=== PATIENT | male | born 1955 | race American Indian/Alaskan Native ===

== ENCOUNTER 2018-12-28 09:42 | Inpatient (IN) | payer OTHER ==
[2018-12-28] MEDS ORDERED: PROVENTIL IH ONE ×2 (10:03→12:35)
[2018-12-28] MEDS ORDERED: ATROVENT IH ONE (10:03)
[2018-12-28] MEDS ORDERED: SOLU-Medrol IV ONE (10:03)
--- NOTE | 2018-12-28 10:08 | Emergency Department Report ---
HPI - General Chief Complaint: Dyspnea/Respdistress Time Seen by Provider: 12/28/18 09:59 - HPI HPI: 63-year-old -[place] male presents to the emergency department from home with a complaint of a 2-3 day history of shortness of breath, mixed dry and productive cough, chest congestion and subjective fever. The patient has a history of hypertension and paroxysmal atrial fibrillation on Coumadin for anticoagulation. The patient thought that his symptoms may be secondary to some sinus issues and has been taking [id number] sinus medication for the past few days without much relief. No recent travel or sick contacts at home. His primary care physician is a Dr. Rodriguez. ED Past Medical Hx - Past Medical History Hx Hypertension: Yes Additional medical history: Afib - Surgical History Past Surgical History?: No - Social History Smoking Status: Never Smoker Substance Use Type: None ED Review of Systems ROS: Stated complaint: SOB Other details as noted in HPI Comment: All other systems reviewed and negative Constitutional: fever (subjective). denies: weakness Eyes: denies: eye pain, vision change ENT: denies: ear pain, throat pain Respiratory: cough, shortness of breath, wheezing Cardiovascular: denies: chest pain, palpitations Gastrointestinal: denies: abdominal pain, vomiting Genitourinary: denies: dysuria, discharge Musculoskeletal: denies: back pain, arthralgia Skin: denies: rash, lesions Neurological: denies: headache, weakness Physical Exam - Physical Exam Vital Signs: Vital Signs 12/28/18 09:44 Temperature 98.2 F Pulse Rate 106 H Respiratory 20 Rate Blood Pressure 133/100 O2 Sat by Pulse 94 Oximetry Physical Exam: GENERAL: The patient is well-developed well-nourished. HENT: Normocephalic. Atraumatic. Patient has moist mucous membranes. EYES: Extraocular motions are intact. Pupils equal reactive to light bilaterally. NECK: Supple. Trachea is midline. CHEST/LUNGS: Moderate wheezing throughout the chest. There is some tachypnea but no accessory muscle use. No conversational dyspnea. There is no respiratory distress noted. HEART/CARDIOVASCULAR: Regular. There is mild tachycardia. There is no murmur. ABDOMEN: Abdomen is soft, nontender. Patient has normal bowel sounds. Obese habitus. SKIN: Skin is warm and dry. NEURO: The patient is awake, alert, and oriented. The patient is cooperative. The patient has no focal neurologic deficits. The patient has normal speech. MUSCULOSKELETAL: There is no tenderness or deformity. There is no limitation r alcon of motion. There is no evidence of acute injury. ED Course Vital Signs 12/28/18 09:44 Temperature 98.2 F Pulse Rate 106 H Respiratory 20 Rate Blood Pressure 133/100 O2 Sat by Pulse 94 Oximetry - ABG Interpretation Ph: 7.368 PCO2: 41 PO2: 61 Bicarbonate: 23 Interpretation: other (hypoxia) ED Medical Decision Making - Lab Data Result diagrams: 12/28/18 10:16 12/28/18 10:44 - EKG Data -: EKG Interpreted by Me - EKG Data When compared to previous EKG there are: previous EKG unavailable Interpretation: other (atrial flutter, rate of 96 bpm) - Radiology Data Radiology results: image reviewed interpreted by me: Chest x-ray shows some mild cardiomegaly and pulmonary vascular congestion. No obvious pneumonia. No pneumothorax. - Medical Decision Making Patient presents with some shortness of breath, wheezing, coughing. On examination his bronchospasm is audible even without auscultation. He does have some tachypnea but does not appear to be in any respiratory distress. A chest x-ray was done that showed some cardiomegaly and pulmonary vascular congestion, but otherwise there is no signs of any pneumonia, pleural effusions, focal consolidation or pneumothorax. The patient's labs have been mostly u nremarkable. His INR is not therapeutic for his Coumadin treatment so a d-dimer sent but it came back as negative. The patient was given some steroids and to different presenting treatments. At first, the patient appeared to be responding to the nebulized treatments. However we attempted to ambulate the patient and he was only able to go a short distance before he had audible wheezing, tachypnea and hypoxia. With ambulation, his pulse ox went down into the 80s. Afterwards, even while at rest, the patient had tachycardia and some hypoxia in the low 90s. For all these reasons, the patient appears to require admission for serial breathing treatments and steroids, further evaluation and t reatment, and the patient was except for admission by the hospitalist, Dr. Fine. - Differential Diagnosis Asthma, pneumonia, COPD, PE, Bronchitis Critical Care Time: No Critical care attestation.: If time is entered above; I have spent that time in minutes in the direct care of this critically ill patient, excluding procedure time. ED Disposition Clinical Impression: Bronchospasm, Hypoxemia, Exertional dyspnea Hypertension Qualifiers: Hypertension type: essential hypertension Qualified Code(s): I10 - Essential (primary) hypertension Disposition: OP ADMIT IP TO THIS HOSP Is pt being admited?: Yes Condition: Fair Time of Disposition: 15:34
[2018-12-28 11:20] LABS: Hematocrit 42.4 % (35.5-45.6); Hemoglobin 14.6 gm/dl (11.8-15.2); Mean Corpuscular HGB Conc 34 % (32-34); Mean Corpuscular Volume 90 fl (84-94); Platelet Count 175 K/mm3 (140-440); Red Blood Count 4.74 M/mm3 (3.65-5.03); Red Cell Distribution Width 13.9 % (13.2-15.2)
[2018-12-28 11:22] LABS: Alanine Aminotransferase 18 units/L (7-56); BUN/Creatinine Ratio 9; Blood Urea Nitrogen 10 mg/dL (9-20); Calcium 8.9 mg/dL (8.4-10.2); Hemolysis Index 8
[2018-12-28 11:32] LABS: INR 1.46 (0.87-1.13)
[2018-12-28 11:33] LABS: Partial Thromboplastin Time 41.3 Sec. (24.2-36.6)
--- NOTE | 2018-12-28 12:15 | XRay Report ---
PROCEDURE: XR CHEST 1V AP TECHNIQUE: Frontal chest radiograph. HISTORY: Dyspnea COMPARISONS: None FINDINGS: The left lateral costophrenic angle was not completely included on the study. There is likely mild ca rdiomegaly. Central pulmonary vascular congestion is seen. There is mild prominence of the right para tracheal contours. Note that the patient is rotated. No consolidation. No pleural effusion. No pneumothorax. No acute osseous abnormality. IMPRESSION: Mild cardiomegaly with central pulmonary vascular congestion. Nonspecific prominence of the right paratracheal region may represent the sternum related to patient rotation. Recommend further evaluation with dedicated PA and lateral chest radiograph when feasible. This document is electronically signed by Mali Rosenthal., Dec 28 2018 12:14:04 PM ET
[2018-12-28 12:38] LABS: Bilirubin,Urine NEG (Negative); Blood,Urine SM (Negative); Color,Urine Yellow (Yellow); Mucus,Urine 1+ /HPF; Urobilinogen,Urine < 2.0 mg/dL (<2.0)
[2018-12-28] MEDS ORDERED: ZOFRAN IV PRN (14:16)
[2018-12-28] MEDS ORDERED: SODIUM CHLORIDE FLUSH SYRINGE 10 ML IV PRN (14:16)
[2018-12-28 14:22] LABS: Band Neutrophils # (Manual) 0.1 K/mm3; Basophils % (Manual) 0 % (0.0-1.8); Giant Platelets Few; Platelet Estimate Consistent w Auto; RBC Morphology Normal; Total Cells Counted 100
--- NOTE | 2018-12-28 20:55 | History and Physical Report ---
History of Present Illness Date of admission: 12/28/18 14:16 Chief complaint: I cant breathe History of present illness: 63 YO Male with MO, Atrial Fib currently prescribed therapeutic anticoagulation with Coumadin, Medication Noncompliance, HTN presents to ED for evaluation. Pt states that he has experienced shortness of breath over the past 3 days with persistently worsening symptoms over the same time frame. Pt also reports increased productive cough with yellow sputum and well as lack of improvement in symptoms with nebulizer therapy. Pt acknowledges decreased exercise tolerance, dypsnea at rest, dypsnea with exertion, and well as palpitations in his chest. Pt transported to [facility] via private vehicle. Pt seen and evaluated in ED and found to have Atrial Fib with RVR, with subtherapeutic INR, COPD Exacerbation complicated by Acute Respiratory Failure, as well as symptoms consistent with CHF decompensation. Pt treated with supplemental oxygen, nebulizer therapy and diuresis with improvement in symptoms. Pt admitted to telemetry. Cardiology consulted in ED. Pt denies fever, chills, CP, NVD, Trauma, BRBPR, Skin rash, unilateral leg swelling, calf pain, hemoptysis, or recent ill contacts. No prior admission for review. All listed medication reconciled at time of admission. Past History Past Medical History: atrial fib, hypertension, other (MO,Obesity Hypoventilation) Past Surgical History: No surgical history, Other (reviewed) Social history: single. denies: smoking, alcohol abuse, prescription drug abuse Family history: hypertension Medications and Allergies Allergies Allergy/AdvReac Type Severity Reaction Status Date / Time No Known Allergies Allergy Unverified 12/28/18 09:43 Home Medications Medication Instructions Recorded Confirmed Last Taken Type Aspirin EC [Aspirin Enteric Coated 81 mg PO QDAY 12/28/18 12/28/18 Unknown History TAB] Chlorthalidone [Thalitone] 12.5 mg PO QDAY 12/28/18 12/28/18 Unknown History Ergocalciferol (Vitamin D2) 50,000 unit PO 1XW 12/28/18 12/28/18 Unknown History [Drisdol] Finasteride 5 mg PO QHS 12/28/18 12/28/18 Unknown History Fluticasone [Flonase] 2 spray NS BID 12/28/18 12/28/18 Unknown History Levothyroxine [Synthroid] 50 mcg PO QAM 12/28/18 12/28/18 Unknown History Lisinopril [Zestril] 20 mg PO QHS 12/28/18 12/28/18 Unknown History Metoprolol [Lopressor TAB] 50 mg PO BID 12/28/18 12/28/18 Unknown History Sildenafil Citrate [Viagra] 50 mg PO DAILY PRN 12/28/18 12/28/18 Unknown History Terazosin HCl 10 mg PO QHS 12/28/18 12/28/18 Unknown History Warfarin [Coumadin] 1 tab PO 3XW 12/28/18 12/28/18 Unknown History Warfarin [Coumadin] 1.5 tab PO 4XW 12/28/18 12/28/18 Unknown History Active Meds: Active Medications Acetaminophen (Tylenol) 650 mg PO Q4H PRN PRN Reason: Pain MILD(1-3)/Fever >100.5/AKINS Ondansetron HCl (Zofran) 4 mg IV Q8H PRN PRN Reason: Nausea And Vomiting Sodium Chloride (Sodium Chloride Flush Syringe 10 Ml) 10 ml IV BID PRASHANT Sodium Chloride (Sodium Chloride Flush Syringe 10 Ml) 10 ml IV PRN PRN PRN Reason: LINE FLUSH Review of Systems Constitutional: no weight loss, no weight gain, no fever, no chills Ears, nose, mouth and throat: no ear pain, no tinnitis, no decreased hearing, no nose pain, no nasal congestion, no nasal discharge Cardiovascular: shortness of breath, no chest pain, no orthopnea Respiratory: no cough, no cough with sputum, no hemoptysis Gastrointestinal: no nausea, no vomiting, no diarrhea, no constipation Genitourinary Male: no hematuria, no flank pain, no discharge, no urinary frequency, no urinary hesitancy Rectal: no pain, no incontinence, no bleeding Musculoskeletal: no neck stiffness, no neck pain, no shooting arm pain, no arm numbness/tingling, no low back pain Integumentary: no rash, no pruritis, no redness, no sores, no wounds Neurological: no paralysis, no weakness, no parathesias, no numbness, no tingling, no seizures, no syncope Psychiatric: no change in sleep habits, no sleep disturbances, no insomnia, no change in appetite, no change in libido, no suicidal ideation Endocrine: no cold intolerance, no excessive thirst, no polydipsia, no polyuria, no nocturia Hematologic/Lymphatic: no easy bruising, no easy bleeding, no lymphadenopathy Allergic/Immunologic: no urticaria, no allergic rhinitis, no persistent infections Exam - Constitutional Vitals: Temp Pulse Resp BP Pulse Ox 98.4 F 109 H 18 155/93 95 12/28/18 19:31 12/28/18 19:31 12/28/18 19:31 12/28/18 19:31 12/28/18 19:31 General appearance: Present: obese - EENT Eyes: Present: PERRL ENT: hearing intact, clear oral mucosa - Neck Neck: Present: supple, normal ROM - Respiratory Respiratory effort: normal, labored Respiratory: bilateral: diminished - Cardiovascular Rhythm: irregularly irregular Heart Sounds: Present: S1 & S2. Absent: rub, click - Extremities Extremities: pulses symmetrical, No edema Peripheral Pulses: within normal limits - Abdominal General gastrointestinal: Present: soft, non-tender, non-distended, normal bowel sounds Male genitourinary: Present: normal - Integumentary Integumentary: Present: clear, warm, dry - Musculoskeletal Musculoskeletal: gait normal, strength equal bilaterally - Psychiatric Psychiatric: appropriate mood/affect, intact judgment & insight - Neurologic Neurologic: CNII-XII intact, moves all extremities Results - Labs CBC & Chem 7: 12/28/18 10:16 12/28/18 10:44 Labs: Abnormal lab results 12/28/18 12/28/18 12/28/18 Range/Units 10:16 10:16 10:44 Seg Neuts % (Manual) 79.0 H (40.0-70.0) % Lymphocytes % (Manual) 11.0 L (13.4-35.0) % Monocytes % (Manual) 8.0 H (0.0-7.3) % Lymphocytes # (Manual) 0.6 L (1.2-5.4) K/mm3 PT 18.7 H (12.2-14.9) Sec. INR 1.46 H (0.87-1.13) APTT 41.3 H (24.2-36.6) Sec. POC ABG pO2 (80-105) Glucose 107 H (75-100) mg/dL 12/28/18 Range/Units 14:03 Seg Neuts % (Manual) (40.0-70.0) % Lymphocytes % (Manual) (13.4-35.0) % Monocytes % (Manual) (0.0-7.3) % Lymphocytes # (Manual) (1.2-5.4) K/mm3 PT (12.2-14.9) Sec. INR (0.87-1.13) APTT (24.2-36.6) Sec. POC ABG pO2 61 L (80-105) Glucose (75-100) mg/dL Assessment and Plan - Patient Problems (1) Atrial fib/flutter, transient Current Visit: Yes Status: Acute Plan to address problem: Admit to telemetry, therapeutic anticoagulation, rate control with cardizem, cardiology coonsulted in ED, supportive care. thyroid panel, (2) Respiratory failure Current Visit: Yes Status: Acute Qualifiers: Chronicity: acute Respiratory failure complication: hypoxia Qualified Code(s): J96.01 - Acute respiratory failure with hypoxia Plan to address problem: Supplemental oxygen, nebulizer therapy, chest x ray, NIPPV, ABG, CBC, CMP, pulse oximetry, pulmonary toilet, (3) COPD (chronic obstructive pulmonary disease) Current Visit: Yes Status: Acute Qualifiers: COPD type: COPD with acute exacerbation Qualified Code(s): J44.1 - Chronic obstructive pulmonary disease with (acute) exacerbation Plan to address problem: Supplemental oxygen, steroid therapy, Iv antibiotic therapy, NIPPV, supportive care. nebulizer therapy. (4) Obesity hypoventilation syndrome Current Visit: Yes Status: Acute Plan to address problem: supplemental oxygen, nebulizer therapy, NIPPV, balanced diet, increased physical activity at discharge, outpatient bariatric surgery evaluation, (5) DVT prophylaxis Current Visit: Yes Status: Acute Plan to address problem: SCD to BLE while in bed, therapeutic anticoagulation
[2018-12-28] MEDS: CARDIZEM PO SCH ×3 (21:10→23:55)
[2018-12-28] MEDS ORDERED: APRESOLINE IV PRN (21:11)
[2018-12-28] MEDS: ELIQUIS PO SCH (21:40)
[2018-12-28] MEDS: ZITHROMAX 500 MG in NACL 0.9% 250ML 250 ML IV SCH (22:34)
[2018-12-28 22:35] LABS: Free T4 (Free Thyroxine) 0.97 ng/dL (0.76-1.46)
[2018-12-28] MEDS: SOLU-Medrol IV SCH (22:35)
[2018-12-28] MEDS: SODIUM CHLORIDE FLUSH SYRINGE 10 ML IV SCH (22:35)
[2018-12-29] MEDS: CARDIZEM PO SCH ×4 (06:11→23:01)
[2018-12-29] MEDS: SOLU-Medrol IV SCH ×2 (09:03→21:13)
[2018-12-29] MEDS: ELIQUIS PO SCH ×2 (09:03→21:13)
[2018-12-29] MEDS: SODIUM CHLORIDE FLUSH SYRINGE 10 ML IV SCH ×2 (09:06→21:13)
[2018-12-29] MEDS: DUONEB *Not for PRN Use IH SCH ×3 (10:15→21:30)
--- NOTE | 2018-12-29 13:45 | Progress Note ---
Assessment and Plan / Atrial fib/flutter, transient Admitted to telemetry, cont therapeutic anticoagulation, rate control with cardizem, cardiology coonsulted in ED, supportive care. normal thyroid panel, /Acute hypoxic Respiratory failure likely from COPD exacerbation cont Supplemental oxygen, nebulizer therapy, as needed NIPPV, pulse oximetry, pulmonary toilet, / COPD (chronic obstructive pulmonary disease) exacerbation cont Supplemental oxygen, steroid therapy, Iv antibiotic therapy, NIPPV as needed, nebulizer therapy. / sleep apnea with possible Obisity hyperventilation syndrome CPAP at bedtime, balanced diet, increased physical activity at discharge, / DVT prophylaxis SCD to BLE while in bed, therapeutic anticoagulation - discharge when clinically more stable Brief History: 63 YO Male with MO, Atrial Fib currently prescribed therapeutic anticoagulation with Coumadin, Medication Noncompliance, HTN presented to ED with c/o shortness of breath over the past 3 days. Pt seen and evaluated in ED and found to have Atrial Fib with RVR, with subtherapeutic INR, COPD Exacerbation complicated by Acute Respiratory Failure. Pt treated with supplemental oxygen, nebulizer therapy and diuresis with improvement in symptoms. Pt admitted to telemetry. Cardiology consulted in ED. Subjective Date of service: 12/29/18 Interval history: Patient seen and examined c/o SOB even on rest denies any chest pain Objective - Exam Narrative Exam: General appearance: Present: obese - EENT Eyes: Present: PERRL ENT: hearing intact, clear oral mucosa - Neck Neck: Present: supple, normal ROM - Respiratory Respiratory effort: normal, labored Respiratory: bilateral: diminished - Cardiovascular Rhythm: irregularly irregular Heart Sounds: Present: S1 & S2. Absent: rub, click - Extremities Extremities: pulses symmetrical, No edema Peripheral Pulses: within normal limits - Abdominal General gastrointestinal: Present: soft, non-tender, non-distended, normal bowel sounds Male genitourinary: Present: normal - Integumentary Integumentary: Present: clear, warm, dry - Musculoskeletal Musculoskeletal: gait normal, strength equal bilaterally - Psychiatric Psychiatric: appropriate mood/affect, intact judgment & insight - Neurologic Neurologic: CNII-XII intact, moves all extremities - Constitutional Vitals: Vital Signs - 12hr 12/29/18 12/29/18 12/29/18 04:41 06:11 08:20 Temperature 98.3 F Pulse Rate 67 69 Pulse Rate [ 99 H Apical] Pulse Rate [ Posterior Bilateral Throughout] Respiratory 18 20 Rate Respiratory Rate [Posterior Bilateral Throughout] Blood Pressure 161/92 161/92 O2 Sat by Pulse 98 Oximetry 12/29/18 12/29/18 12/29/18 08:47 10:00 10:15 Temperature 98.3 F Pulse Rate 77 61 Pulse Rate [ Apical] Pulse Rate [ Posterior Bilateral Throughout] Respiratory 20 Rate Respiratory Rate [Posterior Bilateral Throughout] Blood Pressure 167/93 O2 Sat by Pulse 94 95 Oximetry 12/29/18 12/29/18 12/29/18 10:21 10:32 12:41 Temperature 98.3 F Pulse Rate 86 Pulse Rate [ Apical] Pulse Rate [ 92 H 95 H Posterior Bilateral Throughout] Respiratory 20 Rate Respiratory 18 21 Rate [Posterior Bilateral Throughout] Blood Pressure 156/95 O2 Sat by Pulse 95 Oximetry 12/29/18 12:42 Temperature Pulse Rate 86 Pulse Rate [ Apical] Pulse Rate [ Posterior Bilateral Throughout] Respiratory Rate Respiratory Rate [Posterior Bilateral Throughout] Blood Pressure 156/95 O2 Sat by Pulse Oximetry - Labs CBC & Chem 7: 12/28/18 10:16 12/28/18 10:44 Labs: Abnormal lab results 12/28/18 12/28/18 Range/Units 10:16 14:03 Seg Neuts % (Manual) 79.0 H (40.0-70.0) % Lymphocytes % (Manual) 11.0 L (13.4-35.0) % Monocytes % (Manual) 8.0 H (0.0-7.3) % Lymphocytes # (Manual) 0.6 L (1.2-5.4) K/mm3 POC ABG pO2 61 L (80-105)
--- NOTE | 2018-12-29 15:14 | Consultation ---
History of Present Illness Consult date: 12/29/18 Consult reason: atrial fibrillation History of present illness: The patient is a 63-year-old man who usually receives his [facility]. He describes a history of hypertension, previous CVA, obstructive sleep apnea on CPAP at home. He is morbidly obese. He has a history of "atrial fibrillation". He is on chronic Coumadin therapy, currently subtherapeutic at 1.46. The indication for Coumadin is presumably atrial tachycardia arrhythmias. We do not have his [place] medical records for review, but he reports that the only ischemic cardiac workup he had previously was a stress test many years ago. He is uncertain about his ejection fraction assessment, and is uncertain about the chronicity of his atrial fibrillation and whether he has had previous rhythm control measures. He presents to the hospital at this time with complaints of worsening shortness of breath, audible wheezing, and currently his hospital room he has audible rhonchi and wheezes with a suspicion of upper airway obstruction. There is no chest pain, no palpitations, no significant lower extremity edema, no syncope. His telemetry strips show atrial flutter with a well-controlled ventricular rate, which prompted a cardiac consultation. Past History Past Medical History: atrial fib, COPD, hypertension, other (sleep apnea,Obesity Hypoventilation) Past Surgical History: No surgical history, Other (reviewed) Social history: single. denies: smoking, alcohol abuse, prescription drug abuse Family history: hypertension Medications and Allergies Allergies Allergy/AdvReac Type Severity Reaction Status Date / Time No Known Allergies Allergy Unverified 12/28/18 09:43 Home Medications Medication Instructions Recorded Confirmed Last Taken Type Aspirin EC [Aspirin Enteric Coated 81 mg PO QDAY 12/28/18 12/28/18 Unknown History TAB] Chlorthalidone [Thalitone] 12.5 mg PO QDAY 12/28/18 12/28/18 Unknown History Ergocalciferol (Vitamin D2) 50,000 unit PO 1XW 12/28/18 12/28/18 Unknown History [Drisdol] Finasteride 5 mg PO QHS 12/28/18 12/28/18 Unknown History Fluticasone [Flonase] 2 spray NS BID 12/28/18 12/28/18 Unknown History Levothyroxine [Synthroid] 50 mcg PO QAM 12/28/18 12/28/18 Unknown History Lisinopril [Zestril] 20 mg PO QHS 12/28/18 12/28/18 Unknown History Metoprolol [Lopressor TAB] 50 mg PO BID 12/28/18 12/28/18 Unknown History Sildenafil Citrate [Viagra] 50 mg PO DAILY PRN 12/28/18 12/28/18 Unknown History Terazosin HCl 10 mg PO QHS 12/28/18 12/28/18 Unknown History Warfarin [Coumadin] 1 tab PO 3XW 12/28/18 12/28/18 Unknown History Warfarin [Coumadin] 1.5 tab PO 4XW 12/28/18 12/28/18 Unknown History Loratadine [Claritin] 10 mg PO DAILY 12/29/18 12/29/18 Unknown History Montelukast [Singulair] 10 mg PO QPM 12/29/18 12/29/18 Unknown History Active Meds: Active Medications Acetaminophen (Tylenol) 650 mg PO Q4H PRN PRN Reason: Pain MILD(1-3)/Fever >100.5/AKINS Albuterol/Ipratropium (Duoneb *Not For Prn Use*) 1 ampul IH Q6HRT [facility] Last Admin: 12/29/18 10:15 Dose: 1 ampul Documented by: Apixaban (Eliquis) 10 mg PO Q12HR [facility]; Protocol Last Admin: 12/29/18 09:03 Dose: 10 mg Documented by: Diltiazem HCl (Cardizem) 30 mg PO Q6HR [facility] Last Admin: 12/29/18 12:42 Dose: 30 mg Documented by: Hydralazine HCl (Apresoline) 10 mg IV Q8HR PRN PRN Reason: Hypertension Azithromycin 500 mg/ Sodium (Chloride) 250 mls @ 250 mls/hr IV Q24H [facility] Last Admin: 12/28/18 22:34 Dose: 250 mls/hr Documented by: Methylprednisolone Sodium Succinate (Solu-Medrol) 40 mg IV Q12HR [facility] Last Admin: 12/29/18 09:03 Dose: 40 mg Documented by: Ondansetron HCl (Zofran) 4 mg IV Q8H PRN PRN Reason: Nausea And Vomiting Sodium Chloride (Sodium Chloride Flush Syringe 10 Ml) 10 ml IV BID [facility] Last Admin: 12/29/18 09:06 Dose: 10 ml Documented by: Sodium Chloride (Sodium Chloride Flush Syringe 10 Ml) 10 ml IV PRN PRN PRN Reason: LINE FLUSH Review of Systems Cardiovascular: orthopnea, shortness of breath, no chest pain, no palpitations, no rapid/irregular heart beat, no edema, no syncope, no lightheadedness Physical Examination Vital Signs Temp Pulse Resp BP Pulse Ox 98.2 F 106 H 20 133/100 94 12/28/18 09:44 12/28/18 09:44 12/28/18 09:44 12/28/18 09:44 12/28/18 09:44 General appearance: mild distress HEENT: Positive: PERRL Neck: Positive: neck supple Cardiac: Positive: irregularly irregular Lungs: Positive: Decreased Breath Sounds, Rhonchi Neuro: Positive: Grossly Intact Abdomen: Positive: Soft Male genitourinary: Positive: deferred Skin: Positive: Clear Extremities: Absent: edema Results 12/28/18 10:16 12/28/18 10:44 EKG interpretations - Telemetry EKG Rhythm: Atrial Flutter Assessment and Plan - Patient Problems (1) Atrial flutter Current Visit: Yes Status: Acute Plan to address problem: Patient has atrial flutter of uncertain duration, probably chronic. He is on oral anticoagulation started by his doctors at the [facility]. Recommend obtaining his medical records for review. For now, continue warfarin therapy, and maintain good rate control of his atrial flutter. (2) COPD (chronic obstructive pulmonary disease) Current Visit: Yes Status: Acute Qualifiers: COPD type: COPD with acute exacerbation Qualified Code(s): J44.1 - Chronic obstructive pulmonary disease with (acute) exacerbation Plan to address problem: Patient has COPD with symptoms of severe sleep apnea, defer to internal medicine and pulmonary medicine for management.
--- NOTE | 2018-12-29 21:23 | Consultation ---
History of Present Illness Consult date: 12/29/18 History of present illness: PULMONARY AND CRITICAL CARE CONSULTATION DR. OTERO THANK YOU FOR ASKING US TO PARTICIPATE IN THE CARE OF THIS PATIENT. 63 YO Male with MO, Atrial Fib currently prescribed therapeutic anticoagulation with Coumadin, Medication Noncompliance, HTN presents to ED for evaluation. Pt states that he has experienced shortness of breath over the past 3 days with persistently worsening symptoms over the same time frame. Pt also reports increased productive cough with yellow sputum and well as lack of improvement in symptoms with nebulizer therapy. Pt acknowledges decreased exercise tolerance, dypsnea at rest, dypsnea with exertion, and well as palpitations in his chest. Pt transported to [facility] via private vehicle. Pt seen and evaluated in ED and found to have Atrial Fib with RVR, with subtherapeutic INR, COPD Exacerbation complicated by Acute Respiratory Failure, as well as symptoms consistent with CHF decompensation. Pt treated with supplemental oxygen, nebulizer therapy and diuresis with improvement in symptoms. Pt admitted to telemetry. Cardiology consulted in ED. Pt denies fever, chills, CP, NVD, Trauma, BRBPR, Skin rash, unilateral leg swelling, calf pain, hemoptysis, or recent ill contacts. No prior admission for review. Patient denies any history of smoking alcohol or drug abuse. Patient awake. Resting on 2 litres O2. Patient has history of sleep apnea. He uses CPAP during night time. Past History Past Medical History: atrial fib, COPD, hypertension, other (sleep apnea,Obesity Hypoventilation) Past Surgical History: No surgical history, Other (reviewed) Social history: single. denies: smoking, alcohol abuse, prescription drug abuse Family history: hypertension Medications and Allergies Allergies Allergy/AdvReac Type Severity Reaction Status Date / Time No Known Allergies Allergy Unverified 12/28/18 09:43 Home Medications Medication Instructions Recorded Confirmed Last Taken Type Aspirin EC [Aspirin Enteric Coated 81 mg PO QDAY 12/28/18 12/28/18 Unknown Hi story TAB] Chlorthalidone [Thalitone] 12.5 mg PO QDAY 12/28/18 12/28/18 Unknown History Ergocalciferol (Vitamin D2) 50,000 unit PO 1XW 12/28/18 12/28/18 Unknown History [Drisdol] Finasteride 5 mg PO QHS 12/28/18 12/28/18 Unknown History Fluticasone [Flonase] 2 spray NS BID 12/28/18 12/28/18 Unknown History Levothyroxine [Synthroid] 50 mcg PO QAM 12/28/18 12/28/18 Unknown History Lisinopril [Zestril] 20 mg PO QHS 12/28/18 12/28/18 Unknown History Metoprolol [Lopressor TAB] 50 mg PO BID 12/28/18 12/28/18 Unknown History Sildenafil Citrate [Viagra] 50 mg PO DAILY PRN 12/28/18 12/28/18 Unknown History Terazosin HCl 10 mg PO QHS 12/28/18 12/28/18 Unknown History Warfarin [Coumadin] 1 tab PO 3XW 12/28/18 12/28/18 Unknown History Warfarin [Coumadin] 1.5 tab PO 4XW 12/28/18 12/28/18 Unknown History Loratadine [Claritin] 10 mg PO DAILY 12/29/18 12/29/18 Unknown History Montelukast [Singulair] 10 mg PO QPM 12/29/18 12/29/18 Unknown History Active Meds: Active Medications Acetaminophen (Tylenol) 650 mg PO Q4H PRN PRN Reason: Pain MILD(1-3)/Fever >100.5/AKINS Albuterol/Ipratropium (Duoneb *Not For Prn Use*) 1 ampul IH Q6HRT [facility] Last Admin: 12/29/18 15:42 Dose: 1 ampul Documented by: Apixaban (Eliquis) 10 mg PO Q12HR [facility]; Protocol Last Admin: 12/29/18 21:13 Dose: 10 mg Documented by: Diltiazem HCl (Cardizem) 30 mg PO Q6HR [facility] Last Admin: 12/29/18 17:58 Dose: 30 mg Documented by: Hydralazine HCl (Apresoline) 10 mg IV Q8HR PRN PRN Reason: Hypertension Azithromycin 500 mg/ Sodium (Chloride) 250 mls @ 250 mls/hr IV Q24H [facility] Last Admin: 12/28/18 22:34 Dose: 250 mls/hr Documented by: Methylprednisolone Sodium Succinate (Solu-Medrol) 40 mg IV Q12HR [facility] Last Admin: 12/29/18 21:13 Dose: 40 mg Documented by: Ondansetron HCl (Zofran) 4 mg IV Q8H PRN PRN Reason: Nausea And Vomiting Sodium Chloride (Sodium Chloride Flush Syringe 10 Ml) 10 ml IV BID [facility] Last Admin: 12/29/18 21:13 Dose: 10 ml Documented by: Sodium Chloride (Sodium Chloride Flush Syringe 10 Ml) 10 ml IV PRN PRN PRN Reason: LINE FLUSH Review of Systems All systems: negative Physical Examination Vital signs: Vital Signs Temp Pulse Resp BP Pulse Ox 98.2 F 106 H 20 133/100 94 12/28/18 09:44 12/28/18 09:44 12/28/18 09:44 12/28/18 09:44 12/28/18 09:44 General appearance: no acute distress, alert Eyes: non-icteric ENT: oropharynx moist Neck: supple, no JVD Effort: normal Ascultation: Bilateral: diminished breath sounds Cardiovascular: irregular rhythm Gastrointestinal: normoactive bowel sounds, soft, non-tender Integumentary: normal Extremities: no cyanosis Musculoskeletal: no deformities Gait: poor gait normal mental status, non-focal exam, pupils equal and round, CN II-XII normal mood appropriate Results - Laboratory Findings CBC and BMP: 12/28/18 10:16 12/28/18 10:44 ABG POC ABG pH 7.368 (7.35-7.45) 12/28/18 14:03 POC ABG pCO2 41.1 (35-45) 12/28/18 14:03 POC ABG pO2 61 (80-105) L 12/28/18 14:03 POC ABG HCO3 23.6 (22-26 mml/L) 12/28/18 14:03 POC ABG Total CO2 25 (23-27mmol/L) 12/28/18 14:03 POC ABG O2 Sat 90 12/28/18 14:03 PT/INR, D-dimer PT 18.7 Sec. (12.2-14.9) H 12/28/18 10:16 INR 1.46 (0.87-1.13) H 12/28/18 10:16 163.78 ng/mlDDU (0-234) 12/28/18 10:16 Abnormal lab findings: Abnormal Labs 12/28/18 12/28/18 12/28/18 10:16 10:16 10:44 Seg Neuts % (Manual) 79.0 H Lymphocytes % (Manual) 11.0 L Monocytes % (Manual) 8.0 H Lymphocytes # (Manual) 0.6 L PT 18.7 H INR 1.46 H APTT 41.3 H POC ABG pO2 Glucose 107 H 12/28/18 14:03 Seg Neuts % (Manual) Lymphocytes % (Manual) Monocytes % (Manual) Lymphocytes # (Manual) PT INR APTT POC ABG pO2 61 L Glucose - Diagnostic Findings Chest x-ray: report reviewed (Mild cardiomegaly and central pulmonary vascular congestion.), image reviewed Assessment and Plan 63 YO Male with MO, Atrial Fib currently prescribed therapeutic anticoagulation with Coumadin, Medication Noncompliance, HTN presents to ED for evaluation. Pt states that he has experienced shortness of breath over the past 3 days with persistently worsening symptoms over the same time frame. Pt also reports increased productive cough with yellow sputum and well as lack of improvement in symptoms with nebulizer therapy. Pt acknowledges decreased exercise tolerance, dypsnea at rest, dypsnea with exertion, and well as palpitations in his chest. Pt transported to [facility] via private vehicle. Pt seen and evaluated in ED and found to have Atrial Fib with RVR, with subtherapeutic INR, COPD Exacerbation complicated by Acute Respiratory Failure, as well as symptoms consistent with CHF decompensation. Pt treated with supplemental oxygen, nebulizer therapy and diuresis with improvement in symptoms. Pt admitted to telemetry. Cardiology consulted in ED. Pt denies fever, chills, CP, NVD, Trauma, BRBPR, Skin rash, unilateral leg swelling, calf pain, hemoptysis, or recent ill contacts. No prior admission for review. Patient denies any history of smoking alcohol or drug abuse. Patient awake. Resting on 2 litres O2. Patient has history of sleep apnea. He uses CPAP during night time. - Patient Problems (1) COPD (chronic obstructive pulmonary disease) Current Visit: Yes Status: Acute Qualifiers: COPD type: COPD with acute exacerbation Qualified Code(s): J44.1 - Chronic obstructive pulmonary disease with (acute) exacerbation Plan to address problem: O2 2 litres via nasal canula. Albuterol/atrovent aerosol treatments q 6 hours. Continue I/V solumedrol. Continue zithromax. Patient is on Apixaban (2) Bronchospasm Current Visit: Yes Status: Acute Plan to address problem: O2 2 litres via nasal canula. Albuterol/atrovent aerosol treatments q 6 hours. Continue I/V solumedrol. Continue zithromax. Patient is on Apixaban (3) Atrial fib/flutter, transient Current Visit: Yes Status: Acute Plan to address problem: Patient is on apixaban Management as per cardiology. (4) Exertional dyspnea Current Visit: Yes Status: Acute Plan to address problem: Multifactorial (5) Hypertension Current Visit: Yes Status: Acute Qualifiers: Hypertension type: essential hypertension Qualified Code(s): I10 - Essent ial (primary) hypertension Plan to address problem: Management as per primary care. (6) Morbid obesity Current Visit: Yes Status: Acute Plan to address problem: Recommend to loose weight Recommend diet and exercise. (7) Sleep apnea in adult Current Visit: Yes Status: Acute Plan to address problem: On CPAP
[2018-12-29] MEDS: ZITHROMAX 500 MG in NACL 0.9% 250ML 250 ML IV SCH (22:37)
[2018-12-29] MEDS: CLARITIN PO SCH (22:37)
[2018-12-29] MEDS: MUCINEX ER PO SCH (22:37)
[2018-12-30] MEDS: TYLENOL PO PRN (00:47)
[2018-12-30] MEDS: DUONEB *Not for PRN Use IH SCH ×4 (03:13→20:39)
[2018-12-30] MEDS: CARDIZEM PO SCH ×3 (05:39→23:19)
[2018-12-30] MEDS: SYNTHROID PO SCH (05:39)
--- NOTE | 2018-12-30 09:21 | Progress Note ---
Assessment and Plan COPD exacerbation Atrial flutter, rate control on Coumadin therapy as an outpatient. This has been changed to eliquis since admission for anticoagulation therapy. [facility]. Hypertension Prior CVA Obstructive sleep apnea on CPAP at home Morbidly obese Echocardiogram for left ventricular assessment. Continue oral anticoagulation and rate controlling agents for atrial fibrillation that persists. Subjective Date of service: 12/30/18 Interval history: Atrial flutter with a well control ventricular rate on telemetry. Objective Vital Signs Temp Pulse Pulse Pulse Resp Resp Resp 12/30/18 07:52 97.9 F 85 20 12/30/18 05:39 125 H 12/30/18 04:07 98.5 F 12/30/18 04:04 125 H 20 12/30/18 03:15 85 18 12/30/18 03:05 83 20 12/30/18 01:47 20 12/30/18 00:47 20 12/30/18 00:30 85 20 12/29/18 23:01 101 H 12/29/18 22:55 98.6 F 101 H 22 12/29/18 21:33 90 20 12/29/18 21:32 12/29/18 21:23 85 24 12/29/18 20:09 22 12/29/18 19:31 79 12/29/18 19:14 97.8 F 93 H 22 12/29/18 17:58 83 12/29/18 16:32 98.2 F 105 H 20 12/29/18 16:01 84 18 12/29/18 15:43 68 19 12/29/18 12:42 86 12/29/18 12:41 98.3 F 86 20 12/29/18 10:32 95 H 21 12/29/18 10:21 92 H 18 12/29/18 10:15 12/29/18 10:00 61 BP BP Pulse Ox 12/30/18 07:52 165/100 97 12/30/18 05:39 167/88 12/30/18 04:07 12/30/18 04:04 167/88 93 12/30/18 03:15 12/30/18 03:05 12/30/18 01:47 12/30/18 00:47 12/30/18 00:30 96 12/29/18 23:01 171/90 05/19/19 22:55 171/90 94 05/19/19 21:33 12/29/18 21:32 98 12/29/18 21:23 12/29/18 20:09 97 12/29/18 19:31 12/29/18 19:14 166/97 95 12/29/18 17:58 158/91 12/29/18 16:32 173/103 95 12/29/18 16:01 12/29/18 15:43 12/29/18 12:42 156/95 12/29/18 12:41 156/95 95 12/29/18 10:32 12/29/18 10:21 12/29/18 10:15 95 12/29/18 10:00 - Physical Examination HEENT: Positive: PERRL Neck: Positive: neck supple Neuro: Positive: Grossly Intact Abdomen: Positive: Soft Skin: Positive: Clear Extremities: Absent: edema
[2018-12-30] MEDS: MUCINEX ER PO SCH ×2 (09:25→21:56)
[2018-12-30] MEDS: ELIQUIS PO SCH ×2 (09:29→21:57)
[2018-12-30] MEDS: HALFPRIN EC PO SCH (09:29)
[2018-12-30] MEDS: THALITONE PO SCH (09:29)
[2018-12-30] MEDS: SOLU-Medrol IV SCH ×2 (09:29→21:56)
[2018-12-30] MEDS: MINIPRESS PO SCH ×2 (09:30→21:56)
[2018-12-30] MEDS: SODIUM CHLORIDE FLUSH SYRINGE 10 ML IV SCH ×2 (09:30→21:58)
[2018-12-30] MEDS: FLONASE NS SCH ×2 (09:31→22:05)
[2018-12-30] MEDS ORDERED: LOPRESSOR PO SCH ×2 (10:00→14:17)
[2018-12-30] MEDS ORDERED: VITAMIN D2 PO SCH (10:00)
[2018-12-30] MEDS: CLARITIN PO SCH (11:10)
[2018-12-30] MEDS ORDERED: CARDIZEM PO SCH ×2 (14:17→15:00)
--- NOTE | 2018-12-30 14:17 | Progress Note ---
Assessment and Plan / Atrial fib/flutter, transient Admitted to telemetry, cont therapeutic anticoagulation, rate control with cardizem, cardiology coonsulted in ED, supportive care. normal thyroid panel, Preserved EF on 2d echo /Acute hypoxic Respiratory failure likely from COPD exacerbation cont Supplemental oxygen, nebulizer therapy, as needed NIPPV, pulse oximetry, pulmonary toilet, / COPD (chronic obstructive pulmonary disease) exacerbation cont Supplemental oxygen, steroid therapy, Iv antibiotic therapy, NIPPV as needed, nebulizer therapy. / sleep apnea with possible Obisity hyperventilation syndrome CPAP at bedtime, balanced diet, increased physical activity at discharge, / DVT prophylaxis SCD to BLE while in bed, therapeutic anticoagulation - discharge when clinically more stable Brief History: 63 YO Male with MO, Atrial Fib currently prescribed therapeutic anticoagulation with Coumadin, Medication Noncompliance, HTN presented to ED with c/o shortness of breath over the past 3 days. Pt seen and evaluated in ED and found to have Atrial Fib with RVR, with subtherapeutic INR, COPD Exacerbation complicated by Acute Respiratory Failure. Pt treated with supplemental oxygen, nebulizer therapy and diuresis with improvement in symptoms. Pt admitted to telemetry. Cardiology consulted in ED. Subjective Date of service: 12/30/18 Interval history: Patient seen and examined c/o SOB on exertion denies any chest pain updated sister at bedside Objective - Exam Narrative Exam: General appearance: Present: obese - EENT Eyes: Present: PERRL ENT: hearing intact, clear oral mucosa - Neck Neck: Present: supple, normal ROM - Respiratory Respiratory effort: normal, labored Respiratory: bilateral: diminished - Cardiovascular Rhythm: irregularly irregular Heart Sounds: Present: S1 & S2. Absent: rub, click - Extremities Extremities: pulses symmetrical, No edema Peripheral Pulses: within normal limits - Abdominal General gastrointestinal: Present: soft, non-tender, non-distended, normal bowel sounds Male genitourinary: Present: normal - Integumentary Integumentary: Present: clear, warm, dry - Musculoskeletal Musculoskeletal: gait normal, strength equal bilaterally - Psychiatric Psychiatric: appropriate mood/affect, intact judgment & insight - Neurologic Neurologic: CNII-XII intact, moves all extremities - Constitutional Vitals: Vital Signs - 12hr 12/30/18 12/30/18 12/30/18 03:05 03:15 04:04 Temperature Pulse Rate 125 H Pulse Rate [ 83 85 Anterior Bilateral Throughout] Respiratory 20 Rate Respiratory 20 18 Rate [Anterior Bilateral Throughout] Blood Pressure 167/88 O2 Sat by Pulse 93 Oximetry 12/30/18 12/30/18 12/30/18 04:07 05:39 07:52 Temperature 98.5 F 97.9 F Pulse Rate 125 H 85 Pulse Rate [ Anterior Bilateral Throughout] Respiratory 20 Rate Respiratory Rate [Anterior Bilateral Throughout] Blood Pressure 167/88 165/100 O2 Sat by Pulse 97 Oximetry 12/30/18 12/30/18 12/30/18 09:24 09:30 10:00 Temperature Pulse Rate 85 85 Pulse Rate [ Anterior Bilateral Throughout] Respiratory 22 Rate Respiratory Rate [Anterior Bilateral Throughout] Blood Pressure 160/100 160/100 O2 Sat by Pulse Oximetry 12/30/18 12/30/18 12/30/18 11:00 11:10 11:51 Temperature 98.2 F Pulse Rate 103 H Pulse Rate [ 74 94 H Anterior Bilateral Throughout] Respiratory 20 Rate Respiratory 20 20 Rate [Anterior Bilateral Throughout] Blood Pressure 175/96 O2 Sat by Pulse 99 98 Oximetry 12/30/18 12/30/18 12/30/18 12:59 14:00 14:10 Temperature Pulse Rate 120 H Pulse Rate [ 110 H 114 H Anterior Bilateral Throughout] Respiratory Rate Respiratory 20 20 Rate [Anterior Bilateral Throughout] Blood Pressure 175/96 O2 Sat by Pulse Oximetry - Labs CBC & Chem 7: 12/28/18 10:16 12/28/18 10:44
[2018-12-30] MEDS ORDERED: CARDIZEM PO ONE (15:00)
[2018-12-30] MEDS: LOPRESSOR PO SCH ×2 (15:54→21:57)
--- NOTE | 2018-12-30 17:00 | Progress Note ---
Assessment and Plan Patient is awake and resting on 4 liters of O2 via nasal cannula. O2 saturation is 99%. No acute respiratory distress. Patient goes on CPAP at night. - Patient Problems (1) Bronchospasm Current Visit: Yes Status: Acute Plan to address problem: O2 4 litres via nasal canula. Albuterol/atrovent aerosol treatments q 6 hours. Continue I/V solumedrol. Continue zithromax. Patient is on Apixaban (2) Atrial fib/flutter, transient Current Visit: Yes Status: Acute Plan to address problem: Patient is on apixaban Management as per cardiology. (3) Exertional dyspnea Current Visit: Yes Status: Acute Plan to address problem: Multifactorial. Patient morbidly obese. Patient may have late onset asthma. History of sleep apnea and atrial fibrillation. (4) Hypertension Current Visit: Yes Status: Acute Qualifiers: Hypertension type: essential hypertension Qualified Code(s): I10 - Essential (primary) hypertension Plan to address problem: Management as per primary care. (5) Morbid obesity Current Visit: Yes Status: Acute Plan to address problem: Recommend to loose weight Recommend diet and exercise. (6) Sleep apnea in adult Current Visit: Yes Status: Acute Plan to address problem: On CPAP Subjective Date of service: 12/30/18 Interval history: Patient is awake and resting on 4 liters of O2 via nasal cannula. O2 saturation is 99%. No acute respiratory distress. Patient goes on CPAP at night. Objective Vital Signs - 12hr 12/30/18 12/30/18 12/30/18 05:39 07:52 09:24 Temperature 97.9 F Pulse Rate 125 H 85 85 Pulse Rate [ Anterior Bilateral Throughout] Respiratory 20 Rate Respiratory Rate [Anterior Bilateral Throughout] Blood Pressure 167/88 165/100 160/100 Blood Pressure [Right] O2 Sat by Pulse 97 Oximetry 12/30/18 12/30/18 12/30/18 09:30 10:00 11:00 Temperature Pulse Rate 85 98 H Pulse Rate [ 74 Anterior Bilateral Throughout] Respiratory 22 Rate Respiratory 20 Rate [Anterior Bilateral Throughout] Blood Pressure 160/100 Blood Pressure [Right] O2 Sat by Pulse 99 Oximetry 12/30/18 12/30/18 12/30/18 11:10 11:51 12:59 Temperature 98.2 F Pulse Rate 103 H 120 H Pulse Rate [ 94 H Anterior Bilateral Throughout] Respiratory 20 Rate Respiratory 20 Rate [Anterior Bilateral Throughout] Blood Pressure 175/96 175/96 Blood Pressure [Right] O2 Sat by Pulse 98 Oximetry 12/30/18 12/30/18 12/30/18 14:00 14:10 15:54 Temperature Pulse Rate 112 H Pulse Rate [ 110 H 114 H Anterior Bilateral Throughout] Respiratory Rate Respiratory 20 20 Rate [Anterior Bilateral Throughout] Blood Pressure 146/89 Blood Pressure [Right] O2 Sat by Pulse Oximetry 12/30/18 15:57 Temperature Pulse Rate 116 H Pulse Rate [ Anterior Bilateral Throughout] Respiratory 20 Rate Respiratory Rate [Anterior Bilateral Throughout] Blood Pressure Blood Pressure 144/89 [Right] O2 Sat by Pulse Oximetry Constitutional: no acute distress, alert Eyes: non-icteric ENT: oropharynx moist Neck: supple, no JVD Effort: normal Ascultation: Bilateral: diminished breath sounds Cardiovascular: irregular rhythm Gastrointestinal: normoactive bowel sounds, soft, non-tender Integumentary: normal Extremities: no cyanosis Neurologic: normal mental status, non-focal exam, pupils equal and round, CN II- XII normal Psychiatric: mood appropriate CBC and BMP: 12/28/18 10:16 12/28/18 10:44 ABG, PT/INR, D-dimer: ABG POC ABG pH 7.368 (7.35-7.45) 12/28/18 14:03 POC ABG pCO2 41.1 (35-45) 12/28/18 14:03 POC ABG pO2 61 (80-105) L 12/28/18 14:03 POC ABG HCO3 23.6 (22-26 mml/L) 12/28/18 14:03 POC ABG Total CO2 25 (23-27mmol/L) 12/28/18 14:03 POC ABG O2 Sat 90 12/28/18 14:03 PT/INR, D-dimer PT 18.7 Sec. (12.2-14.9) H 12/28/18 10:16 INR 1.46 (0.87-1.13) H 12/28/18 10:16 163.78 ng/mlDDU (0-234) 12/28/18 10:16 Abnormal lab findings: Abnormal Labs 12/28/18 12/28/18 12/28/18 10:16 10:16 10:44 Seg Neuts % (Manual) 79.0 H Lymphocytes % (Manual) 11.0 L Monocytes % (Manual) 8.0 H Lymphocytes # (Manual) 0.6 L PT 18.7 H INR 1.46 H APTT 41.3 H POC ABG pO2 Glucose 107 H 12/28/18 14:03 Seg Neuts % (Manual) Lymphocytes % (Manual) Monocytes % (Manual) Lymphocytes # (Manual) PT INR APTT POC ABG pO2 61 L Glucose
[2018-12-30] MEDS: SINGULAIR PO SCH (17:42)
[2018-12-30] MEDS: PROSCAR PO SCH (21:58)
[2018-12-30] MEDS ORDERED: ZESTRIL PO SCH (22:00)
[2018-12-30] MEDS: ZITHROMAX 500 MG in NACL 0.9% 250ML 250 ML IV SCH (23:08)
[2018-12-31] MEDS: TYLENOL PO PRN (00:07)
[2018-12-31] MEDS: DUONEB *Not for PRN Use IH SCH ×4 (01:41→19:30)
[2018-12-31 01:49] LABS: BUN/Creatinine Ratio 16; Blood Urea Nitrogen 13 mg/dL (9-20); Hemolysis Index 10
[2018-12-31] MEDS: SYNTHROID PO SCH (05:42)
[2018-12-31] MEDS: CARDIZEM PO SCH ×4 (05:46→23:11)
--- NOTE | 2018-12-31 10:17 | Progress Note ---
Assessment and Plan COPD exacerbation Atrial flutter, rate control on Coumadin therapy as an outpatient. This has been changed to eliquis this admission. [facility]. Hypertension Prior CVA Obstructive sleep apnea on CPAP at home Morbidly obese An echocardiogram reports dilated right heart chambers with mild pulmonary hypertension, RVSP 36 mmHg. Normal left ventricular systolic function, ejection fraction 55-60%. Continue oral anticoagulation and rate controlling agents for atrial fibrillation that persists. Otherwise, conservative cardiac management. Subjective Date of service: 12/31/18 Interval history: Patient has no complaints, wants to go home. Atrial flutter with a well control ventricular rate on telemetry. Objective Vital Signs Temp Pulse Pulse Resp Resp BP BP 12/31/18 09:56 90 18 12/31/18 09:50 12/31/18 09:45 92 H 20 12/31/18 07:57 97.9 F 87 20 159/97 12/31/18 05:46 66 156/100 12/31/18 03:51 97.6 F 66 24 156/100 12/31/18 03:49 97.5 F L 103 H 24 166/100 12/31/18 01:42 68 20 12/31/18 01:07 97.5 F L 84 22 150/96 12/31/18 01:03 97.5 F L 22 150/96 12/31/18 00:07 22 12/30/18 23:45 79 12/30/18 23:24 97.7 F 75 22 168/103 12/30/18 23:19 76 168/103 12/30/18 21:57 95 H 177/94 12/30/18 21:56 95 H 177/94 12/30/18 21:06 12/30/18 20:50 93 H 20 12/30/18 20:42 12/30/18 20:41 66 20 12/30/18 20:23 98.2 F 95 H 22 177/94 12/30/18 15:57 116 H 20 144/89 12/30/18 15:54 112 H 146/89 12/30/18 14:10 114 H 20 12/30/18 14:00 110 H 20 12/30/18 12:59 120 H 175/96 12/30/18 11:51 98.2 F 103 H 20 175/96 12/30/18 11:10 94 H 20 12/30/18 11:00 74 20 Pulse Ox 12/31/18 09:56 12/31/18 09:50 97 12/31/18 09:45 12/31/18 07:57 93 12/31/18 05:46 12/31/18 03:51 93 12/31/18 03:49 100 12/31/18 01:42 12/31/18 01:07 97 12/31/18 01:03 12/31/18 00:07 12/30/18 23:45 12/30/18 23:24 98 12/30/18 23:19 12/30/18 21:57 12/30/18 21:56 12/30/18 21:06 96 12/30/18 20:50 12/30/18 20:42 99 12/30/18 20:41 12/30/18 20:23 96 12/30/18 15:57 12/30/18 15:54 12/30/18 14:10 12/30/18 14:00 12/30/18 12:59 12/30/18 11:51 98 12/30/18 11:10 12/30/18 11:00 99 - Physical Examination General: No Apparent Distress HEENT: Positive: PERRL Neck: Positive: trachea midline Cardiac: Positive: irregularly irregular Lungs: Positive: Decreased Breath Sounds, Wheezes Neuro: Positive: Grossly Intact Extremities: Absent: edema - Labs and Meds Comprehensive Metabolic Panel 12/31/18 Range/Units 01:25 Sodium 140 (137-145) mmol/L Potassium 4.3 (3.6-5.0) mmol/L Chloride 99.9 (98-107) mmol/L Carbon Dioxide 33 H (22-30) mmol/L BUN 13 (9-20) mg/dL Creatinine 0.8 (0.8-1.5) mg/dL Glucose 142 H (75-100) mg/dL Calcium 9.0 (8.4-10.2) mg/dL
[2018-12-31] MEDS: THALITONE PO SCH (10:30)
[2018-12-31] MEDS: MINIPRESS PO SCH ×2 (10:30→22:24)
[2018-12-31] MEDS: HALFPRIN EC PO SCH (10:31)
[2018-12-31] MEDS: CLARITIN PO SCH (10:31)
[2018-12-31] MEDS: LOPRESSOR PO SCH ×2 (10:31→22:23)
[2018-12-31] MEDS: ELIQUIS PO SCH ×2 (10:31→22:25)
[2018-12-31] MEDS: MUCINEX ER PO SCH ×2 (10:31→22:24)
[2018-12-31] MEDS: FLONASE NS SCH ×2 (10:32→22:29)
[2018-12-31] MEDS: SOLU-Medrol IV SCH ×2 (10:32→22:25)
[2018-12-31] MEDS: SODIUM CHLORIDE FLUSH SYRINGE 10 ML IV SCH ×2 (10:33→22:25)
[2018-12-31] MEDS ORDERED: ZESTRIL PO SCH ×2 (12:30→22:00)
--- NOTE | 2018-12-31 12:31 | Progress Note ---
Assessment and Plan / Atrial fib/flutter, transient Admitted to telemetry, cont therapeutic anticoagulation with eliquis, rate control with cardizem, cardiology coonsulted in ED, supportive care. normal thyroid panel, Preserved EF on 2d echo /Acute hypoxic Respiratory failure likely from COPD exacerbation cont Supplemental oxygen, nebulizer therapy, as needed NIPPV, pulse oximetry, pulmonary toilet, / COPD (chronic obstructive pulmonary disease) exacerbation cont Supplemental oxygen, steroid therapy, Iv antibiotic therapy, NIPPV as needed, nebulizer therapy. /HTN, uncontrolled - cont to adjust medications - added hydralazine today / sleep apnea with possible Obisity hyperventilation syndrome CPAP at bedtime, balanced diet, increased physical activity at discharge, /Morbid obesity, discussed about diet and exercise plan / DVT prophylaxis SCD to BLE while in bed, therapeutic anticoagulation - discharge when clinically more stable Brief History: 63 YO Male with MO, Atrial Fib currently prescribed therapeutic anticoagulation with Coumadin, Medication Noncompliance, HTN presented to ED with c/o shortness of breath over the past 3 days. Pt seen and evaluated in ED and found to have Atrial Fib with RVR, with subtherapeutic INR, COPD Exacerbation complicated by Acute Respiratory Failure. Pt treated with supplemental oxygen, nebulizer therapy and diuresis with improvement in symptoms. Pt admitted to telemetry. Cardiology consulted in ED. Subjective Date of service: 12/31/18 Interval history: Patient seen and examined c/o SOB on exertion denies any chest pain still has wheezes Objective - Exam Narrative Exam: General appearance: Present: obese - EENT Eyes: Present: PERRL ENT: hearing intact, clear oral mucosa - Neck Neck: Present: supple, normal ROM - Respiratory Respiratory effort: normal, labored Respiratory: bilateral: diminished, + wheezes - Cardiovascular Rhythm: irregularly irregular Heart Sounds: Present: S1 & S2. Absent: rub, click - Extremities Extremities: pulses symmetrical, No edema Peripheral Pulses: within normal limits - Abdominal General gastrointestinal: Present: soft, non-tender, non-distended, normal bowel sounds Male genitourinary: Present: normal - Integumentary Integumentary: Present: clear, warm, dry - Musculoskeletal Musculoskeletal: gait normal, strength equal bilaterally - Psychiatric Psychiatric: appropriate mood/affect, intact judgment & insight - Neurologic Neurologic: CNII-XII intact, moves all extremities - Constitutional Vitals: Vital Signs - 12hr 12/31/18 12/31/18 12/31/18 01:03 01:07 01:42 Temperature 97.5 F L 97.5 F L Pulse Rate 84 Pulse Rate [ 68 Anterior Bilateral Throughout] Respiratory 22 22 Rate Respiratory 20 Rate [Anterior Bilateral Throughout] Blood Pressure 150/96 Blood Pressure 150/96 [Right] O2 Sat by Pulse 97 Oximetry 12/31/18 12/31/18 12/31/18 03:49 03:51 05:46 Temperature 97.5 F L 97.6 F Pulse Rate 103 H 66 66 Pulse Rate [ Anterior Bilateral Throughout] Respiratory 24 24 Rate Respiratory Rate [Anterior Bilateral Throughout] Blood Pressure 166/100 156/100 156/100 Blood Pressure [Right] O2 Sat by Pulse 100 93 Oximetry 12/31/18 12/31/18 12/31/18 07:57 09:45 09:50 Temperature 97.9 F Pulse Rate 87 Pulse Rate [ 92 H Anterior Bilateral Throughout] Respiratory 20 Rate Respiratory 20 Rate [Anterior Bilateral Throughout] Blood Pressure 159/97 Blood Pressure [Right] O2 Sat by Pulse 93 97 Oximetry 12/31/18 12/31/18 12/31/18 09:56 10:00 11:20 Temperature 97.9 F Pulse Rate 55 L 55 L Pulse Rate [ 90 Anterior Bilateral Throughout] Respiratory 26 H 20 Rate Respiratory 18 Rate [Anterior Bilateral Throughout] Blood Pressure 180/90 Blood Pressure [Right] O2 Sat by Pulse 93 92 Oximetry - Labs CBC & Chem 7: 12/28/18 10:16 12/31/18 01:25 Labs: Abnormal lab results 12/31/18 Range/Units 01:25 Carbon Dioxide 33 H (22-30) mmol/L Glucose 142 H (75-100) mg/dL
[2018-12-31] MEDS: APRESOLINE PO SCH ×2 (17:05→22:25)
[2018-12-31] MEDS: SINGULAIR PO SCH (18:40)
[2018-12-31] MEDS: PROSCAR PO SCH (22:23)
[2018-12-31] MEDS: ZITHROMAX 500 MG in NACL 0.9% 250ML 250 ML IV SCH (22:25)
[2019-01-01] MEDS: DUONEB *Not for PRN Use IH SCH ×2 (01:31→08:32)
[2019-01-01] MEDS: APRESOLINE PO SCH ×2 (06:16→13:48)
[2019-01-01] MEDS: SYNTHROID PO SCH (06:16)
[2019-01-01] MEDS: CARDIZEM PO SCH ×2 (06:17→13:31)
[2019-01-01] MEDS: MINIPRESS PO SCH (10:03)
[2019-01-01] MEDS: MUCINEX ER PO SCH (10:03)
[2019-01-01] MEDS: SOLU-Medrol IV SCH (10:03)
[2019-01-01] MEDS: SODIUM CHLORIDE FLUSH SYRINGE 10 ML IV SCH (10:03)
[2019-01-01] MEDS: CLARITIN PO SCH (10:03)
[2019-01-01] MEDS: HALFPRIN EC PO SCH (10:03)
[2019-01-01] MEDS: ELIQUIS PO SCH (10:04)
[2019-01-01] MEDS: LOPRESSOR PO SCH (10:04)
[2019-01-01] MEDS: THALITONE PO SCH (10:04)
[2019-01-01] MEDS: FLONASE NS SCH (10:05)
--- NOTE | 2019-01-01 10:10 | Progress Note ---
Assessment and Plan COPD exacerbation Atrial flutter, rate control on Coumadin therapy as an outpatient. This has been changed to eliquis this admission. [facility]. Hypertension Prior CVA Obstructive sleep apnea on CPAP at home Morbidly obese An echocardiogram reports dilated right heart chambers with mild pulmonary hypertension, RVSP 36 mmHg. Normal left ventricular systolic function, ejection fraction 55-60%. Continue oral anticoagulation and rate controlling agents for atrial fibrillation that persists. Otherwise, conservative cardiac management. Once discharged, patient will follow up Dr Mckeon, January 21 at 930a. Subjective Date of service: 01/01/19 Interval history: Patient has no complaints. Atrial flutter with a well control ventricular rate on telemetry. Objective Vital Signs Temp Pulse Pulse Pulse Resp Resp BP 01/01/19 10:04 87 144/86 01/01/19 10:03 87 144/86 01/01/19 08:47 87 18 01/01/19 08:35 86 16 01/01/19 08:34 01/01/19 07:53 98.4 F 62 20 144/86 01/01/19 06:17 61 143/90 01/01/19 06:16 61 143/90 01/01/19 04:16 98.1 F 61 18 143/90 01/01/19 00:25 84 17 12/31/18 23:32 98.0 F 108 H 18 101/74 12/31/18 23:11 82 150/86 12/31/18 22:25 89 155/84 12/31/18 22:24 89 155/84 12/31/18 22:23 89 155/84 12/31/18 21:15 80 22 12/31/18 20:03 98 H 12/31/18 19:41 89 17 12/31/18 19:31 85 17 12/31/18 19:11 98.3 F 72 18 155/84 12/31/18 16:25 98.4 F 20 12/31/18 16:24 98.4 F 90 20 167/103 12/31/18 14:58 92 H 19 12/31/18 14:50 89 18 12/31/18 11:20 97.9 F 55 L 20 180/90 Pulse Ox 01/01/19 10:04 01/01/19 10:03 01/01/19 08:47 01/01/19 08:35 01/01/19 08:34 98 01/01/19 07:53 97 01/01/19 06:17 01/01/19 06:16 01/01/19 04:16 91 01/01/19 00:25 95 12/31/18 23:32 98 12/31/18 23:11 12/31/18 22:25 12/31/18 22:24 12/31/18 22:23 12/31/18 21:15 95 12/31/18 20:03 12/31/18 19:41 12/31/18 19:31 98 12/31/18 19:11 97 12/31/18 16:25 12/31/18 16:24 96 12/31/18 14:58 12/31/18 14:50 12/31/18 11:20 92 - Physical Examination General: No Apparent Distress HEENT: Positive: PERRL Neck: Positive: trachea midline Cardiac: Positive: irregularly irregular Lungs: Positive: Decreased Breath Sounds, Wheezes Neuro: Positive: Grossly Intact Extremities: Absent: edema
[2019-01-01 11:31] VITALS: BP 133/89
--- NOTE | 2019-01-01 14:38 | Discharge Summary ---
Providers - Providers Date of Admission: 12/28/18 14:16 Date of discharge: 01/01/19 Attending physician: NICOLETTE YATES 12/28/18 20:59 Consult to Cardiology [CONS] Routine Consulting Provider: RENATO WELCH Reason For Exam: diastolic chf, AF 12/29/18 18:47 Consult to Physician [CONS] Routine Comment: Consulting Provider: OZZIE SIDDIQUI Physician Instructions: Reason For Exam: acute respiratory failure Primary care physician: CHIEF DATA OFFICER Hospitalization Condition: Fair Pertinent studies: Chest x-ray A 2-D echocardiogram Hospital course: Brief History: 63 YO Male with MO, Atrial Fib currently prescribed therapeutic anticoagulation with Coumadin, Medication Noncompliance, HTN presented to ED with c/o shortness of breath over the past 3 days. Pt was seen and evaluated in ED and found to have Atrial Fib with RVR, with subtherapeutic INR, COPD Exacerbation complicated by Acute Respiratory Failure. Pt treated with supplemental oxygen, nebulizer therapy and diuresis with improvement in symptoms. Pt was then admitted to telemetry for further evaluation and management and Cardiology consulted. His rate was stabilized with cardizem, changed coumadin to eliquis, given Supplemental oxygen, steroid therapy, Iv antibiotic therapy, NIPPV as needed, nebulizer therapy for COPD (chronic obstructive pulmonary disease) exacerbation vs severe bronchospasm with late onset asthma. BP meds adjusted, patient was then discharged home in stable condition with outpt followup. Discharge diagnosis and management. / Atrial fib/flutter, transient Admitted to telemetry, cont therapeutic anticoagulation with eliquis, rate controled with cardizem, cardiology coonsulted in ED, normal thyroid panel, Preserved EF on 2d echo /Acute hypoxic Respiratory failure likely from COPD exacerbation Managed with Supplemental oxygen, nebulizer therapy, as needed NIPPV, pulse oximetry, pulmonary toilet, / COPD (chronic obstructive pulmonary disease) exacerbation vs severe bronchospasm with late onset asthma Treated with Supplemental oxygen, steroid therapy, Iv antibiotic therapy, NIPPV as needed, nebulizer therapy. /HTN, uncontrolled - adjusted meds / sleep apnea with possible Obisity hyperventilation syndrome CPAP at bedtime, counseled on balanced diet, increased physical activity at discharge, /Morbid obesity, discussed about diet and exercise plan / DVT prophylaxis SCD to BLE while in bed, therapeutic anticoagulation - discharge home Physical exam General appearance: Present: obese - EENT Eyes: Present: PERRL ENT: hearing intact, clear oral mucosa - Neck Neck: Present: supple, normal ROM - Respiratory Respiratory effort: normal, labored Respiratory: bilateral: diminished, + wheezes - Cardiovascular Rhythm: irregularly irregular Heart Sounds: Present: S1 & S2. Absent: rub, click - Extremities Extremities: pulses symmetrical, No edema Peripheral Pulses: within normal limits - Abdominal General gastrointestinal: Present: soft, non-tender, non-distended, normal bowel sounds Male genitourinary: Present: normal - Integumentary Integumentary: Present: clear, warm, dry - Musculoskeletal Musculoskeletal: gait normal, strength equal bilaterally - Psychiatric Psychiatric: appropriate mood/affect, intact judgment & insight - Neurologic Neurologic: CNII-XII intact, moves all extremities Disposition: NM-01 TO HOME OR SELFCARE Time spent for discharge: 34 minutes Core Measure Documentation - Palliative Care Palliative Care/ Comfort Measures: Not Applicable - Core Measures Any of the following diagnoses?: none Exam - Constitutional Vitals: Temp Pulse Resp BP Pulse Ox 98.0 F 81 20 133/89 92 01/01/19 11:29 01/01/19 13:48 01/01/19 11:29 01/01/19 13:48 01/01/19 11:29 Plan Activity: advance as tolerated Weight Bearing Status: Weight Bear as Tolerated Diet: low fat, low salt Follow up with: SHAMA PINTO MD [Staff Physician] - 7 Days PRIMARY CARE, [Primary Care Provider] - 7 Days OZZIE SIDDIQUI MD [Staff Physician] - 7 Days Prescriptions: Lisinopril [Zestril TAB] 40 mg PO QHS #30 tablet hydrALAZINE [Apresoline TAB] 50 mg PO Q8HR #90 tablet Diltiazem HCl [Diltiazem 12Hr ER] 120 mg PO BID #60 cap.er.12h Apixaban [Eliquis] 5 mg PO Q12HR #60 tablet Metoprolol [Lopressor TAB] 100 mg PO BID #60 tablet Prednisone [predniSONE 10 mg (6-Day Pack, 21 Tabs)] 10 mg PO .TAPER #1 tab.ds.pk Azithromycin [Zithromax TAB] 500 mg PO QDAY #3 tablet
== END 2019-01-01 14:30 | disposition home or self-care (01) | DRG 189 ==
LOC: ED 09:42 → 4A 14:16
PROVIDERS: ADMIT Internal Medicine; ATTEND Internal Medicine
PROC: 4A033R1 Measurement of Arterial Saturation, Peripheral, Percutaneous Approach (ICD-10-PCS; principal; 2018-12-28)
PROC: 5A09357 Assistance with Respiratory Ventilation, Less than 24 Consecutive Hours, Continuous Positive Airway Pressure (ICD-10-PCS; 2018-12-29)
PROC: 5A09357 Assistance with Respiratory Ventilation, Less than 24 Consecutive Hours, Continuous Positive Airway Pressure (ICD-10-PCS; 2018-12-30)
PROC: 5A09357 Assistance with Respiratory Ventilation, Less than 24 Consecutive Hours, Continuous Positive Airway Pressure (ICD-10-PCS; 2018-12-31)
DX: J96.01 Acute respiratory failure with hypoxia (principal); I48.92 Unspecified atrial flutter; J44.1 Chronic obstructive pulmonary disease with (acute) exacerbation; Z68.41 Body mass index [BMI] 40.0-44.9, adult; E66.2 Morbid (severe) obesity with alveolar hypoventilation; I10 Essential (primary) hypertension; I48.0 Paroxysmal atrial fibrillation; J98.01 Acute bronchospasm; I27.20 Pulmonary hypertension, unspecified; Z91.14 Patient's other noncompliance with medication regimen; Z79.82 Long term (current) use of aspirin; Z79.01 Long term (current) use of anticoagulants
CPT/HCPCS: 36415; 71045; 80048; 80053; 81001; 82803; 83735; 83880; 84439; 84443; 84484; 85007; 85025; 85379; 85610; 85730; 93005; 93010; 93306; 94640; 94660; 94760; 96374; G0378; J0456; J2920; J2930; J7050

== ENCOUNTER 2019-08-20 11:09 | Emergency (ER) | payer OTHER ==
[2019-08-20 11:15] VITALS: BP 141/90
--- NOTE | 2019-08-20 11:29 | Event Note ---
ED Screening Note Date of service: 08/20/19 Time: 11:25 ED Screening Note: This is a 64 y.o. M. that presents to the ER with dyspnea for 1 week. Patient states he ran out of inhalers. [facility] is [facility]. Symptoms worse with exertion. This initial assessment/diagnostic orders/clinical plan/treatment(s) is/are subject to change based on patients health status, clinical progression and re- assessment by fellow clinical providers in the ED. Further treatment and workup at subsequent clinical providers discretion. Patient/guardian urged not to elope from the ED as their condition may be serious if not clinically assessed and managed. Initial orders include: Labs, EKG, & CXR
[2019-08-20 12:08] LABS: Hematocrit 46.1 % (35.5-45.6); Hemoglobin 15.3 gm/dl (11.8-15.2); Mean Corpuscular HGB Conc 33 % (32-34); Mean Corpuscular Volume 88 fl (84-94); Platelet Count 215 K/mm3 (140-440); Red Blood Count 5.23 M/mm3 (3.65-5.03); Red Cell Distribution Width 14.2 % (13.2-15.2)
[2019-08-20 12:33] LABS: Blood Urea Nitrogen 11 mg/dL (9-20)
[2019-08-20 12:34] LABS: BUN/Creatinine Ratio 8; Calcium 9.7 mg/dL (8.4-10.2); Hemolysis Index 6
--- NOTE | 2019-08-20 13:01 | XRay Report ---
CHEST 2 VIEWS INDICATION: dyspnea. COMPARISON: 12/28/2018 FINDINGS: Support devices: None. Heart: Within normal limits. Pulmonary vasculature: Mild prominence of the central pulmonary vessels. Lungs/pleura: No acute air space or interstitial disease. No pleural effusion. No pneumothorax. Additional findings: Degenerative change in the spine. IMPRESSION: 1. No acute findings. Signer Name: Javier Montero MD Signed: 08/20/2019 12:56 PM Workstation Name: [id number]
== END 2019-08-20 19:10 | disposition left against medical advice (07) ==
LOC: ED 11:09
DX: R06.02 Shortness of breath (principal); Z53.21 Procedure and treatment not carried out due to patient leaving prior to being seen by health care provider
CPT/HCPCS: 36415; 71046; 80048; 85027; 93005; 93010